=== PATIENT | female | born 1945 | race Caucasian/White ===

== ENCOUNTER 2019-09-27 07:07 | Outpatient (CLI) | payer MEDICARE, SELFPAY ==
--- NOTE | 2019-09-27 07:18 | MR_ITS ---
WS: [id number] MRI LEFT SHOULDER HISTORY: PAIN IN LEFT SHOULDER COMPARISON: None available. TECHNIQUE: Multiplanar sequences of the shoulder joint are submitted. Mild AC joint arthritis. Soft tissue and bone hypertrophy with no widening of the joint space. There is a small amount of subacromial and subdeltoid fluid. No os acromion. Biceps tendon is not identified at the bicipital groove and does appear to be partially subluxed and possibly torn. There is increase fluid along the tendon sheath. Partial articular surface tear involving the distal supraspinatus tendon. Less than 50% involvement o f the tendon. There is also an insertion site tear of the supraspinatus tendon without retraction. Mi ld tendinopathy in the distal supraspinatus and subscapularis tendons. Very mild atrophy of the supra spinatus muscle. Moderate narrowing of the glenohumeral joint. Loss of cartilage with osteophytes around the humeral h ead. Abnormal signal in the anterior labrum. The labrum and slightly globular in appearance. The post erior labrum is intact. There is increased signal in the superior labrum at the biceps tendon attachm ent site. MR/MR shoulder LT wo con* [id number] IMPRESSION: 1. Partial articular surface tear distal supraspinatus tendon and a small part ial insertion site tear also. 2. Mild tendinopathy subscapularis and supraspinatus tendons. 3. Moderate degenerative changes at the glenohumeral joint with abnormal signa l consistent with tears in the anterior and superior labrum. 4. Mild AC joint arthritis. 5. Partially subluxed or torn biceps tendon.
== END 2019-09-27 07:08 | disposition home or self-care (01) ==
LOC: RADSHAW 07:18
PROVIDERS: PCP Nurse Practitioner Family; Visit Provider Family Medicine
DX: M25.512 Pain in left shoulder (principal); M75.112 Incomplete rotator cuff tear or rupture of left shoulder, not specified as traumatic; M13.812 Other specified arthritis, left shoulder
CPT/HCPCS: 73221

== ENCOUNTER 2020-04-21 08:26 | Outpatient (CLI) | payer MEDICARE, SELFPAY ==
--- NOTE | 2020-04-21 08:34 | MM_ITS ---
WS: [id number] BILATERAL DIGITAL SCREENING MAMMOGRAPHY WITH CAD CLINICAL INFORMATION: SCREENING HISTORY: Screening mammogram. No current complaints. COMPARISON: TECHNIQUE: Bilateral CC and MLO views. FINDINGS: Scattered fibroglandular densities bilaterally. No suspicious focal mass, asymmetry, calcifications, or architectural distortion. No evidence of malignancy. Punctate and lucent centered calcifications. MM/[place] [id number] IMPRESSION: BI-RADS: 2-Benign FOLLOW UP: 1 Year Follow-up Recommend return to annual screening mammography.
== END 2020-04-21 08:27 | disposition home or self-care (01) ==
LOC: RADSHAW 08:32
PROVIDERS: PCP Nurse Practitioner Family; Visit Provider Nurse Practitioner Family
DX: Z12.31 Encounter for screening mammogram for malignant neoplasm of breast (principal)
CPT/HCPCS: 77067

== ENCOUNTER 2020-09-17 09:33 | Outpatient (CLI) | payer MEDICARE, SELFPAY ==
--- NOTE | 2020-09-17 09:50 | US_ITS ---
WS: [id number] ULTRASOUND THYROID TECHNIQUE: Ultrasound of the thyroid. CLINICAL INFORMATION: NON-TOXIC MULTINODULAR GOITER COMPARISON: FINDINGS: Thyroid: Enlarged thyroid with heterogeneous echotexture and multiple small nodules consistent with m ultinodular goiter.Thyroid parenchyma and nodules similar to 2019. Largest solid nodule mid right thyroid measures 14 x 19 mm Largest left-sided nodule measures 14 x 24 mm Right thyroid lobe: 4.2 cm x 2.0 cm x 1.5 cm Left thyroid lobe: 4.6 cm x 2.4 cm x 1.4 cm. Isthmus: 0.2 mm. Cervical lymphadenopathy: None. US/US thyroid [id number] IMPRESSION: 1. Again seen is multinodular goiter similar in appearance to 2019. 2. Largest nodule described above similar to 2019. 3. Recommend continued annual surveillance..
== END 2020-09-17 09:34 | disposition home or self-care (01) ==
LOC: RAD 09:37
PROVIDERS: PCP Nurse Practitioner Family; Visit Provider Nurse Practitioner Family
DX: E04.2 Nontoxic multinodular goiter (principal)
CPT/HCPCS: 76536

== ENCOUNTER 2021-02-06 14:24 | Outpatient (CLI) | payer MEDICARE, SELFPAY ==
--- NOTE | 2021-02-06 14:34 | XR_ITS ---
WS: [id number] Bone mineral density performed on a [employer], 02/06/2021 Clinical data: ASYMTOMATIC MENOPAUSAL STATE Findings: The L2-L5 vertebral bodies demonstrated a bone mineral density of 1.262 g/sq cm for a young adult T s core of 0.5. Measurement of the left hip reveals a bone mineral density of 1.007 g/cm2 with a young adult T score of 0.0. Measurement of the right hip reveals the bone mineral density of 1.062 g/cm2 for young adult T score of 0.4. XR/XR DEXA axial skeleton* [id number] Impression: Normal bone mineral density of the lumbar spine and both hips.
== END 2021-02-06 14:25 | disposition home or self-care (01) ==
PROVIDERS: PCP Nurse Practitioner Family; Visit Provider Nurse Practitioner Family
DX: Z78.0 Asymptomatic menopausal state (principal)
CPT/HCPCS: 77080

== ENCOUNTER 2021-09-23 12:32 | Outpatient (CLI) | payer MEDICARE, SELFPAY ==
--- NOTE | 2021-09-23 12:48 | US_ITS ---
WS: [id number] THYROID ULTRASOUND HISTORY: NONTOXIC SINGLE GOITER COMPARISON: 2017, 09/17/2020 Right lobe: 1.9 cm x 1.6 cm x 5.0 cm (w x ap x l). Volume: 7.6 cm3. Mildly enlarged heterogeneous thyroid. There are a few small scattered cystic areas. Coarse echotextu re with no discrete nodule. Left lobe: 2.0 cm x 1.2 cm x 4.6 cm (w x ap x l). Volume: 5.7 cm3. Several nodules within the LEFT kidney are stable. These are dominant hyperechoic nodules. Nodule in the superior pole measures 1.0 x 1.3 x 1.2 cm. Additional similar nodule in the inferior pole measure s 1.0 x 1.0 x 1.2 cm. As compared to prior studies these have not increased in size. Isthmus: 0.1 cm. US/US thyroid [id number] IMPRESSION: 1. Long-term stability of LEFT thyroid nodules. These are solid nodules have b een stable for years. If these increase in size ultrasound-guided FNA can be pe rformed. Recommend continued yearly surveillance. 2. Mild bilateral heterogeneous thyroid.
== END 2021-09-23 12:33 | disposition home or self-care (01) ==
PROVIDERS: PCP Nurse Practitioner Family; Visit Provider Registered Nurse
DX: E04.1 Nontoxic single thyroid nodule (principal)
CPT/HCPCS: 76536

== ENCOUNTER 2021-10-16 09:37 | Outpatient (CLI) | payer MEDICARE, SELFPAY ==
--- NOTE | 2021-10-16 09:48 | MM_ITS ---
WS: [id number] SCREENING DIGITAL BREAST TOMOSYNTHESIS MAMMOGRAM WITH CAD HISTORY: SCREENING COMPARISON: 04/21/2020 and 11/23/2017 Bilateral CC and MLO with tomosynthesis and synthetic mammography submitted. Computer aided detection analyzed. Breast composition: There are scattered areas of fibroglandular density. Very subtle area of architec tural distortion seen best on the LEFT CC projection the central breast. This is probably just above and just lateral to the nipple line. There are additional bilateral scattered calcifications within e ach breast. MM/[place] [id number] IMPRESSION: BI-RADS: 0-Incomplete: Need additional imaging evaluation FOLLOW UP: Need Additional Imaging LEFT breast: Spot compression views (CC and MLO). True ML. Ultrasound to follow if abnormality persists.
== END 2021-10-16 09:38 | disposition home or self-care (01) ==
PROVIDERS: PCP Registered Nurse; Visit Provider Registered Nurse
DX: Z12.31 Encounter for screening mammogram for malignant neoplasm of breast (principal)
CPT/HCPCS: 77063; 77067

== ENCOUNTER 2021-11-17 07:56 | Outpatient (CLI) | payer MEDICARE, SELFPAY ==
--- NOTE | 2021-11-17 08:08 | US_ITS ---
WS: [email or web address] Exam: US breast LT limited* [id number] Date/Time of Exam: 11/17/2021 8:55 AM Reason For Exam: LT BREAST LUMP Regional ultrasound the left breast is performed from the 11:00 to the 2:00 position. Tiny ovoid hypoechoic nodular density noted at the 11:00 position measures 4 mm at greatest diameter. This has the appearance of a tiny intramammary lymph node. There is also a small cyst cluster at the 2:00 position that measures 6.6 mm at greatest dimension. No suspicious solid mass or nodule noted w ithin this area. Recommendations: Continue yearly screening mammography. US/US breast LT limited* [id number] IMPRESSION: 1. Probable tiny intramammary lymph node seen at the 11:00 position. 2. Subcentimeter cyst cluster seen at the 2:00 position. 3. No suspicious solid mass or nodule identified within this area with ultrasou nd. BI-RADS Category 2.
--- NOTE | 2021-11-17 08:08 | MM_ITS ---
WS: [id number] VIEWS: Compression spot images in the CC and MLO views were obtained of the left breast. Also a strai ght 90 degrees lateral view of the left breast was included in the study. 3-D tomosynthesis also incl uded. Comparison made with prior exam of 10/16/2021. Findings: Again noted is a subtle area of architectural distortion seen in the central left breast. No suspicio us calcification identified.Scattered fibroglandular densities in the left breast. Regional ultrasoun d is recommended for further evaluation. MM/[place] [id number] Impression: BI-RADS: 0-Incomplete: Need additional imaging evaluation FOLLOW-UP: See Report This mammogram was also analyzed by the Computer Aided Detection System R2 Imag e Tempering Machine Operator.
== END 2021-11-17 07:57 | disposition home or self-care (01) ==
LOC: RAD 07:56
PROVIDERS: PCP Registered Nurse; Visit Provider Registered Nurse
DX: N63.25 Unspecified lump in the left breast, overlapping quadrants (principal)
CPT/HCPCS: 76642; 77061

== ENCOUNTER 2022-09-13 13:42 | Oncology outpatient (recurring) (ONCR) | payer MEDICARE, SELFPAY ==
[2022-09-13 14:12] VITALS: BP 145/81; PULSE 77; RESP 16; TEMP 36.8; O2SAT 94
[2022-09-13 14:39] LABS: Basophils % 0.5 %; Eosinophils # 0.1 10^3/uL (0.0-0.8); Eosinophils % 1.4 %; Hematocrit 39.5 % (37.0-47.0); Hemoglobin 13.1 g/dL (11.5-15.3); Lymphocytes # 3.1 10^3/uL (0.8-4.8); Lymphocytes % 41.9 %; Mean Corpuscular HGB Conc 33.2 g/dL (30.0-36.0); Mean Corpuscular Hemoglobin 28.9 pg (28.0-34.0); Mean Corpuscular Volume 87.2 fl (81-99); Mean Platelet Volume 9.9 fL (7.4-10.4); Monocytes # 0.5 10^3/uL (0.2-0.9); Monocytes % 6.4 %; Neutrophils # 3.61 10^3/uL (1.8-7.7); Neutrophils % 49.5 %; Nucleated Red Blood Cells % 0 %; Platelet Count 244 10^3/cmm (130-400); Red Blood Count 4.53 10^6/uL (4.1-5.3); Red Cell Distribution Width 12.3 % (12.1-15.1); White Blood Count 7.3 10^3/uL (4.0-10.0)
== END 2022-10-01 23:59 | disposition home or self-care (01) ==
PROVIDERS: Internal Medicine Hematology & Oncology; PCP Registered Nurse; Visit Provider Internal Medicine Medical Oncology
DX: E83.119 Hemochromatosis, unspecified (principal)
CPT/HCPCS: 36415; 85025; 99204

== ENCOUNTER 2023-05-03 12:57 | Outpatient (CLI) | payer MEDICARE, SELFPAY ==
--- NOTE | 2023-05-03 13:04 | US_ITS ---
WS: [id number] THYROID ULTRASOUND HISTORY: THYROID NODULE COMPARISON: 09/23/2021 Right lobe: 1.7 cm x 1.5 cm x 3.7 cm (w x ap x l). Volume: 5.0 cm3. Heterogeneous mildly enlarged nodular thyroid. No discrete nodules are identified. Very similar to th e prior exam. No increased vascularity. Left lobe: 2.1 cm x 1.5 cm x 4.3 cm (w x ap x l). Volume: 7.2 cm3. Several nodules within the LEFT thyroid. Largest nodule measures 1.2 x 1.2 x 1.2 cm. Nodules are near ly isoechoic to the remaining gland. No echogenic foci. Isthmus: 0.3 cm. IMPRESSION: Multinodular goiter. No significant increase in size of the nodules over multiple prior examinations.
== END 2023-05-03 12:58 | disposition home or self-care (01) ==
LOC: RAD 12:58
PROVIDERS: PCP Registered Nurse; Visit Provider Nurse Practitioner Family
DX: E04.2 Nontoxic multinodular goiter (principal)
CPT/HCPCS: 76536

== ENCOUNTER 2023-06-03 08:56 | Outpatient (CLI) | payer MEDICARE, SELFPAY ==
--- NOTE | 2023-06-03 09:06 | MM_ITS ---
WS: [email or web address] VIEWS: MLO and CC views both breasts. 3D digital tomosynthesis is also included in this exam. Comparison made with prior exam of 11/11/2006, 811 20,008, 11/25/2008, 04/22/2010, 04/27/2011, 04/28/2012, 06/10/2014, 06/16/2015, 11/23/2017, 11/13/2018, 04/21/2020, 10/16/2021,. Findings: There was no sign of mass, architectural distortion or suspicious calcification in either breast. The re are scattered areas of fibroglandular density Impression: MM/[place] [id number] BI-RADS: 2-Benign finding. FOLLOW-UP: 1 Year Follow-up This mammogram was also analyzed by the Computer Aided Detection System R2 Imag e Regeneration Operator.
== END 2023-06-03 08:57 | disposition home or self-care (01) ==
LOC: RAD 08:57
PROVIDERS: PCP Registered Nurse; Visit Provider Nurse Practitioner Family
DX: Z12.31 Encounter for screening mammogram for malignant neoplasm of breast (principal)
CPT/HCPCS: 77063; 77067

== ENCOUNTER → 2024-07-02 08:50 | Outpatient (BNVA) | payer MEDICARE, SELFPAY | PROVIDERS: PCP Registered Nurse; Referring Provider Nurse Practitioner Family; Visit Provider Nurse Practitioner Family | DX: L71.0 Perioral dermatitis (principal); L71.8 Other rosacea; T49.0X5A Adverse effect of local antifungal, anti-infective and anti-inflammatory drugs, initial encounter; X58.XXXA Exposure to other specified factors, initial encounter; L20.89 Other atopic dermatitis | CPT/HCPCS: 99203 ==

== ENCOUNTER → 2024-08-09 15:09 | Outpatient (BNVA) | payer MEDICARE, SELFPAY | PROVIDERS: PCP Registered Nurse; Visit Provider Nurse Practitioner Family | DX: L71.0 Perioral dermatitis (principal); L20.89 Other atopic dermatitis | CPT/HCPCS: 99213 ==

== ENCOUNTER 2024-10-26 13:25 | Outpatient (CLI) | payer MEDICARE, SELFPAY ==
--- NOTE | 2024-10-26 13:30 | US_ITS ---
WS: [id number] THYROID ULTRASOUND HISTORY: THYROID NODULE COMPARISON: 05/03/2023 Right lobe: 1.8 cm x 1.8 cm x 4.5 cm (w x ap x l). Volume: 7.2 cm3. Heterogeneous RIGHT thyroid with both ill-defined nodules. There is increased vascularity. Discrete nodules are difficult to define. Slightly more cystic component within these nodules as compared to the prior study. No echogenic foci. Left lobe: 1.5 cm x 2.6 cm x 4.7 cm (w x ap x l). Volume: 8.5 cm3. Heterogeneous gland. Largest nodule in the mid gland measures 1.2 x 1.2 x 1.4 cm. There is increased vascularity and a moderate cystic component. Cystic component is increasing. Smaller nodule inferiorly measures 1.0 x 0.5 x 0.8 cm. Isthmus: 0.2 cm. US/US thyroid [id number] IMPRESSION: 1. Multinodular goiter. Bilateral thyroid nodules. Cystic component is increas ing in nodules. Likely multinodular goiter.
--- NOTE | 2024-10-26 14:00 | MM_ITS ---
WS: [id number] BILATERAL 3D TOMOSYNTHESIS DIGITAL SCREENING MAMMOGRAPHY WITH CAD CLINICAL INFORMATION: SCREENING HISTORY: Screening mammogram. No current complaints. COMPARISON: 2023 TECHNIQUE: Bilateral CC and MLO views. FINDINGS: Scattered fibroglandular densities bilaterally. No suspicious focal mass, asymmetry, calcifications, or architectural distortion. No evidence of malignancy. Incidental punctate and lucent centered calcifications. MM/MM scr BI tomosynthesis [id number] IMPRESSION: DENSITY: There are scattered areas of fibroglandular density. BI-RADS: 2 - Benign. FOLLOW UP: 1 Year Follow-up Recommend return to annual screening mammography.
== END 2024-10-26 13:26 | disposition home or self-care (01) ==
LOC: RAD 13:26
PROVIDERS: PCP Nurse Practitioner Family; Visit Provider Nurse Practitioner Family
DX: Z12.31 Encounter for screening mammogram for malignant neoplasm of breast (principal); E04.2 Nontoxic multinodular goiter
CPT/HCPCS: 76536; 77063; 77067

== ENCOUNTER → 2024-12-11 10:47 | Outpatient (BNVA) | payer MEDICARE, SELFPAY | PROVIDERS: PCP Nurse Practitioner Family; Visit Provider Nurse Practitioner Family | DX: L71.0 Perioral dermatitis (principal); L20.89 Other atopic dermatitis | CPT/HCPCS: 99214 ==